=== PATIENT | female | born 1950 | race Caucasian/White ===

== ENCOUNTER → 2017-04-01 | Outpatient (CLI) | payer OTHER ==
[~2017-04-01] MED LIST: ASPI-496 PO; ATEN25TA PO; AZEL137S4 NAS; CALC1CAP8 PO; CETI10TA24 PO; CHOL200024 PO; CLOT100T PO; FERR325T10 PO; FURO20TA3 PO; INSU100I34 SC; LEVO1CAP3 PO; METF100010 PO; MULT1TAB60 PO; NAPR220C2 PO; OMEP40CA6 PO; POTA8TAB6 PO; SIMV80TA3 PO; SULF1TAB24 PO; VITA400C42 PO
[2017-04-01 15:01] LABS: BLOOD UREA NITROGEN 39 mg/dL (7-18)
[2017-04-01 15:04] LABS: ASPARTATE AMINO TRANSFERASE 13 U/L (15-37)
== END | disposition home or self-care (01) ==
LOC: STAR 13:46
PROVIDERS: ATTEND Specialist
DX: Z01.818 Encounter for other preprocedural examination (principal); D37.02 Neoplasm of uncertain behavior of tongue; I45.10 Unspecified right bundle-branch block
CPT/HCPCS: 36415; 80053; 93005

== ENCOUNTER 2017-04-05 07:17 | Day surgery (SDC) | payer OTHER ==
[~2017-04-05] VITALS: Ht 157.5 cm; Wt 128.0 kg
[~2017-04-05 07:17] MED LIST changes: +LIDOCAINE/PF 1%-EPI 1:200K, 30ML ONE
[2017-04-05] MEDS ORDERED: LACTATED RINGERS 1,000 ML IV SCH (07:31)
[2017-04-05] MEDS ORDERED: MIDAZOLAM 1 MG/ML, 2ML ONE (08:21)
[2017-04-05] MEDS ORDERED: FENTANYL PF 100 MCG/2ML ONE (08:22)
[2017-04-05] MEDS ORDERED: PROPOFOL 10 MG/ML, 20ML ONE (10:20)
[2017-04-05] MEDS ORDERED: PROMETHAZINE 25 MG/ML, 1ML IV PRN (10:30)
[2017-04-05] MEDS ORDERED: OXYcodone 5 MG/5 ML ORAL.SOL UDC PO PRN (10:30)
[2017-04-05] MEDS ORDERED: ONDANSETRON 2MG/ML, 2ML IVPush PRN (10:30)
[2017-04-05] MEDS ORDERED: METOCLOPRAMIDE 5 MG/ML, 2ML IV PRN (10:30)
[2017-04-05] MEDS ORDERED: MEPERIDINE/PF 25MG/0.5ML IVPush PRN (10:30)
[2017-04-05] MEDS ORDERED: ACETAMINOPHEN 325 MG TABLET PO PRN (10:30)
[2017-04-05] MEDS ORDERED: LABETALOL 5MG/ML, 20ML IV PRN (10:30)
[2017-04-05] MEDS ORDERED: FENTANYL PF 100 MCG/2ML IV PRN (10:30)
[2017-04-05] MEDS ORDERED: hydrALAzine 20 MG/ML, 1ML IV PRN (10:30)
[2017-04-05] MEDS ORDERED: ACETAMINOPHEN 650 MG/20.3 ML UDC ONE (10:59)
[2017-04-05] MEDS ORDERED: OXYcodone 5 MG/5 ML ORAL.SOL UDC ONE (10:59)
== END 2017-04-05 12:40 | disposition home or self-care (01) ==
LOC: OUT 07:17
PROVIDERS: ATTEND Specialist
DX: K14.9 Disease of tongue, unspecified (principal); K14.0 Glossitis; I10 Essential (primary) hypertension; K21.9 Gastro-esophageal reflux disease without esophagitis; E11.9 Type 2 diabetes mellitus without complications; D64.9 Anemia, unspecified; Z88.8 Allergy status to other drugs, medicaments and biological substances; Z82.49 Family history of ischemic heart disease and other diseases of the circulatory system; Z72.89 Other problems related to lifestyle
CPT/HCPCS: 41112; 82962; 88305; J2250; J2704; J3010; J3490

== ENCOUNTER → 2017-09-01 | Outpatient (CLI) | payer MEDICARE ==
[~2017-09-01] MED LIST changes: +FERR-36 PO; -FERR325T10 PO; +INSU100I13 SQ; -LIDOCAINE/PF 1%-EPI 1:200K, 30ML ONE; +SULF1TAB23 PO; +VITAMIN B6 PO
[2017-09-01 15:45] LABS: ASPARTATE AMINO TRANSFERASE 15 U/L (15-37); BLOOD UREA NITROGEN 45 mg/dL (7-18)
== END | disposition home or self-care (01) ==
LOC: STAR 14:22
PROVIDERS: ATTEND Internal Medicine Gastroenterology
DX: Z01.818 Encounter for other preprocedural examination (principal); R94.31 Abnormal electrocardiogram [ECG] [EKG]; I44.5 Left posterior fascicular block; I45.10 Unspecified right bundle-branch block
CPT/HCPCS: 36415; 80053; 93005

== ENCOUNTER 2017-09-07 08:11 | Day surgery (SDC) | payer MEDICARE ==
[2017-09-01 08:00] VITALS: BP 146/78
[~2017-09-07] VITALS: Ht 157.5 cm; Wt 118.9 kg
[2017-09-07] MEDS ORDERED: LACTATED RINGERS 1,000 ML IV SCH (08:52)
[2017-09-07] MEDS ORDERED: SODIUM CHLORIDE 0.9% 1,000 ML IV SCH (08:52)
[2017-09-07] MEDS ORDERED: LIDOCAINE 1%, 2ML SQ PRN (09:00)
[2017-09-07] MEDS ORDERED: LIDOCAINE 1%, 2ML ONE (09:07)
[2017-09-07] MEDS ORDERED: PROPOFOL 10 MG/ML, 50ML ONE (10:30)
[2017-09-07] MEDS ORDERED: OXYcodone 5 MG/5 ML ORAL.SOL UDC PO PRN (12:00)
[2017-09-07] MEDS ORDERED: HYDROcodone/APAP 7.5-325MG/15ML UDC PO PRN (12:00)
[2017-09-07] MEDS ORDERED: ACETAMINOPHEN 325 MG TABLET PO PRN (12:00)
[2017-09-07] MEDS ORDERED: FENTANYL PF 100 MCG/2ML IV PRN (12:00)
[2017-09-07] MEDS ORDERED: METOPROLOL 1 MG/ML, 5ML IV PRN (12:00)
[2017-09-07] MEDS ORDERED: ONDANSETRON 2MG/ML, 2ML IVPush PRN (12:00)
[2017-09-07] MEDS ORDERED: hydrALAzine 20 MG/ML, 1ML IV PRN (12:00)
[2017-09-07] MEDS ORDERED: ALBUTEROL SULFATE 2.5 MG/3 ML NPPB PRN (12:00)
[2017-09-07] MEDS ORDERED: MEPERIDINE/PF 25MG/0.5ML IVPush PRN (12:00)
[2017-09-07] MEDS ORDERED: METOCLOPRAMIDE 5 MG/ML, 2ML IV PRN (12:00)
[2017-09-07] MEDS ORDERED: HYDROmorphone 1 MG/ML, 1ML IV PRN (12:00)
[2017-09-07] MEDS ORDERED: EPHEDRINE 50 MG/ML, 1ML IVPush PRN (12:00)
[2017-09-07] MEDS ORDERED: LABETALOL 5MG/ML, 20ML IV PRN (12:00)
== END 2017-09-07 13:05 ==
LOC: OUT 08:11
PROVIDERS: ATTEND Internal Medicine Gastroenterology
DX: D12.4 Benign neoplasm of descending colon (principal); D12.3 Benign neoplasm of transverse colon; D12.2 Benign neoplasm of ascending colon; D12.5 Benign neoplasm of sigmoid colon; K63.5 Polyp of colon; K62.1 Rectal polyp; K57.30 Diverticulosis of large intestine without perforation or abscess without bleeding; I12.9 Hypertensive chronic kidney disease with stage 1 through stage 4 chronic kidney disease, or unspecified chronic kidney disease; E11.22 Type 2 diabetes mellitus with diabetic chronic kidney disease; N18.9 Chronic kidney disease, unspecified; E66.01 Morbid (severe) obesity due to excess calories; Z68.42 Body mass index [BMI] 45.0-49.9, adult; Z88.8 Allergy status to other drugs, medicaments and biological substances
CPT/HCPCS: 45385; 82962; 88305; J2704; J3490; J7120

== ENCOUNTER → 2018-07-11 | Outpatient (CLI) | payer MEDICARE ==
[~2018-07-11] MED LIST changes: -FERR-36 PO; +FERR-51 PO; -SIMV80TA3 PO; +SIMV80TA7 PO
[2018-07-11 16:18] LABS: BASOPHILS # (AUTO) 0.06 x10^3/uL (0-0.1); BASOPHILS % (AUTO) 1 % (0-1); EOSINOPHILS # (AUTO) 0.18 x10^3/uL (0-0.4); EOSINOPHILS % (AUTO) 3 % (1-7); LYMPHOCYTES # (AUTO) 1.05 x10^3/uL (1-3.4); LYMPHOCYTES % (AUTO) 15 % (22-44); MD NO; MEAN CORPUSCULAR HGB CONC 33.8 g/dL (32.4-35.8); MEAN CORPUSCULAR VOLUME 97.7 fL (80-100); MONOCYTES # (AUTO) 0.49 x10^3/uL (0.2-0.8); MONOCYTES % (AUTO) 7 % (2-9); NEUTROPHILS % (AUTO) 75 % (42-75); PLATELET COUNT 212 x10^3/uL (130-400); RED BLOOD COUNT 4.12 x10^6/uL (3.82-5.3); RED CELL DISTRIBUTION WIDTH 14.5 % (9.6-15.2)
[2018-07-11 16:30] LABS: ALANINE AMINOTRANSFERASE 37 U/L (12-78); ALBUMIN 3.8 g/dL (3.4-5.0); ANION GAP 9 mmol/L (5-15); CALCIUM 9.5 mg/dL (8.5-10.1); CHLORIDE 103 mmol/L (98-107); CREATININE 1.58 mg/dL (0.55-1.02)
[2018-07-11 16:32] LABS: ALKALINE PHOSPHATASE 64 U/L (45-117); BILIRUBIN,TOTAL 0.4 mg/dL (0.2-1.0); TOTAL PROTEIN 7.2 g/dL (6.4-8.2)
== END | disposition home or self-care (01) ==
LOC: STAR 15:03
PROVIDERS: ATTEND Internal Medicine Gastroenterology
DX: Z01.818 Encounter for other preprocedural examination (principal); I45.10 Unspecified right bundle-branch block; E11.9 Type 2 diabetes mellitus without complications; E66.01 Morbid (severe) obesity due to excess calories; Z86.010 Personal history of colon polyps
CPT/HCPCS: 36415; 80053; 85025; 93005

== ENCOUNTER 2018-07-19 08:01 | Day surgery (SDC) | payer MEDICARE ==
[~2018-07-19] VITALS: Ht 157.5 cm; Wt 124.4 kg
[~2018-07-19 08:01] MED LIST changes: +FLUT9.9S NAS; +LOSA50TA6 PO; +OXYB5TAB7 PO
[2018-07-19] MEDS ORDERED: LACTATED RINGERS 1,000 ML IV SCH (08:36)
[2018-07-19] MEDS ORDERED: PROPOFOL 10 MG/ML, 50ML ONE (09:52)
[2018-07-19] MEDS ORDERED: FENTANYL PF 100 MCG/2ML IV PRN (10:30)
[2018-07-19] MEDS ORDERED: MORPHINE SULFATE 4 MG/ML, 1ML IVPush PRN (10:30)
[2018-07-19] MEDS ORDERED: PROMETHAZINE 12.5 MG SUPP PR PRN (10:30)
[2018-07-19] MEDS ORDERED: PROMETHAZINE 25 MG SUPP PR PRN (10:30)
[2018-07-19] MEDS ORDERED: MIDAZOLAM 1 MG/ML, 2ML IV PRN (10:30)
[2018-07-19] MEDS ORDERED: ONDANSETRON ODT 8 MG PO PRN (10:30)
[2018-07-19] MEDS ORDERED: PROMETHAZINE 25 MG/ML, 1ML IV PRN (10:30)
[2018-07-19] MEDS ORDERED: DIPHENHYDRAMINE 50 MG/ML, 1ML IVPush PRN (10:30)
== END 2018-07-19 12:25 | disposition home or self-care (01) ==
LOC: OUT 08:01
PROVIDERS: ATTEND Internal Medicine Gastroenterology
DX: Z09 Encounter for follow-up examination after completed treatment for conditions other than malignant neoplasm (principal); D12.5 Benign neoplasm of sigmoid colon; D12.4 Benign neoplasm of descending colon; I12.9 Hypertensive chronic kidney disease with stage 1 through stage 4 chronic kidney disease, or unspecified chronic kidney disease; E11.22 Type 2 diabetes mellitus with diabetic chronic kidney disease; N18.9 Chronic kidney disease, unspecified; Z86.010 Personal history of colon polyps; Z88.8 Allergy status to other drugs, medicaments and biological substances
CPT/HCPCS: 45385; 82962; 88305; J2704

== ENCOUNTER → 2019-10-04 | Outpatient (CLI) | payer MEDICARE ==
[~2019-10-04] MED LIST changes: +LOSA50TA14 PO; -LOSA50TA6 PO; +OMEP40CA42 PO; -OMEP40CA6 PO; +OXYB5TAB10 PO; -OXYB5TAB7 PO; +SIMV80TA18 PO; -SIMV80TA7 PO
== END | disposition home or self-care (01) ==
LOC: CFH 12:34
PROVIDERS: ATTEND Licensed Practical Nurse
DX: M89.9 Disorder of bone, unspecified (principal); N95.8 Other specified menopausal and perimenopausal disorders; E11.9 Type 2 diabetes mellitus without complications; Z88.6 Allergy status to analgesic agent
CPT/HCPCS: 77080